=== PATIENT | male | born 1985 | race African-American/Black ===

== ENCOUNTER 2017-09-30 17:58 | Emergency (ER) | payer MEDICARE, OTHER ==
[2017-09-30 18:23] VITALS: RESP 18; TEMP 98.1
--- NOTE | 2017-09-30 18:52 | ED ---
General Adult HPI - General Chief complaint: Seizure Stated complaint: petit mal seizure Time Seen by Provider: 09/30/17 18:37 Source: patient, EMS Mode of arrival: EMS - History of Present Illness Initial comments: This is a 31-year-old male with no past medical history who presents emergency department for intermittent episodes of his left leg giving out. He states that he was walking to the store with his daughter when he noticed it. He states that he just felt like his left leg was giving out on him he was going to fall. He states he was "walking bowlegged". He states that he also felt like his neck was stiff and heavy. He states his head Falling to the right side. He denies any upper extremity symptoms. No difficulty with speech or swallowing. No facial asymmetry. No numbness or tingling. Denies any back pain, saddle anesthesia, all or bladder incontinence. States he does not have any known trauma. States that currently the symptoms have resolved. - Related Data Home Medications Medication Instructions Recorded Confirmed Haloperidol [Haldol] 10 mg PO BID 09/30/17 09/30/17 Allergies Allergy/AdvReac Type Severity Reaction Status Date / Time No Known Allergies Allergy Verified 09/30/17 18:35 Review of Systems ROS Statement: Those systems with pertinent positive or pertinent negative responses have been documented in the HPI. ROS Other: All systems not noted in ROS Statement are negative. Past Medical History Past Medical History: No Reported History History of Any Multi-Drug Resistant Organisms: None Reported Past Surgical History: No Surgical Hx Reported Past Psychological History: Anxiety Smoking Status: Current every day smoker Past Alcohol Use History: Rare Past Drug Use History: None Reported General Exam - General Exam Comments Initial Comments: Constitutional: Awake alert Appears comfortable Head: Normocephalic atraumatic Eyes: no conjunctival injection No scleral icterus EOMI Neck: No JVD Supple Heart: Regular rate rhythm normal S1-S2 no murmurs Lungs: Clear to auscultation bilaterally No wheezing No rales Abdomen: Soft nondistended nontender Extremities: Non edematous DP pulses intact Radial pulses intact Neuro: A&Ox3, cranial nerves II through XII are grossly intact, he pulls are 4 mm reactive bilaterally, 5 out of 5 strength in upper and lower extremities bilaterally, normal finger to nose and heel to hatfield testing, the patient has normal gait and does not seem to have any symptoms at this time, I walked him up and down the hallway without any issue No focal neurologic deficits Psych: Appropriate mood and affect Course Vital Signs 09/30/17 09/30/17 18:19 19:10 Temperature 98.1 F Pulse Rate 91 77 Respiratory 18 18 Rate Blood Pressure 151/69 144/82 O2 Sat by Pulse 98 98 Oximetry Medical Decision Making - Medical Decision Making This is a 31-year-old male who presents emergency department for his left leg giving out. The patient's symptoms have completely resolved by the time return emergency report. He was able to ambulate without assistance. CT of the head and neck was unremarkable. The patient had no back pain. This time I feel that he is okay to go home. Needs. Follow-up with his family doctor. May need neurological evaluation including EMG or MRI in the future. He has worsening or changing symptoms she can return emergency Department. All questions were answered. Disposition Clinical Impression: Transient left leg weakness Disposition: HOME SELF-CARE Condition: Stable Instructions: Weakness (ED) Referrals: Nonstaff,Physician [Primary Care Provider] - 1-2 days
[2017-09-30 19:12] VITALS: BP 144/82; PULSE 77
--- NOTE | 2017-09-30 19:15 | CT ---
EXAMINATION TYPE: CT brain betty cao con DATE OF EXAM: 09/30/2017 COMPARISON: NONE HISTORY: Left leg weakness, right side neck pain. CT DLP: 2008 mGycm Automated exposure control for dose reduction was used. TECHNIQUE: CT scan of the head and cervical spine are performed without contrast. FINDINGS: Ventricles and sulci appear normal. There is no mass effect nor midline shift. There is n o sign of intracranial hemorrhage. The calvarium is intact. There is no sign of cerebral edema. Cervical vertebra have normal alignment. Posterior elements are intact. Disc spaces are fairly well-m aintained. There is no evidence of a fracture. Skull base is intact. IMPRESSION: Negative CT scan of the brain. Negative CT scan of the cervical spine.
== END 2017-09-30 19:34 | disposition home or self-care (01) ==
LOC: EC 17:58
DX: R29.898 Other symptoms and signs involving the musculoskeletal system (principal); F17.200 Nicotine dependence, unspecified, uncomplicated; Z79.899 Other long term (current) drug therapy
CPT/HCPCS: 70450; 72125; 99285

== ENCOUNTER 2019-04-18 08:49 | Inpatient (IN) | payer MEDICARE, OTHER ==
--- NOTE | 2019-04-18 09:09 | ED ---
Psych HPI - General Chief Complaint: Psychiatric Symptoms Stated Complaint: Mental Health-petitioned Time Seen by Provider: 04/18/19 08:55 Source: patient Mode of arrival: wheelchair - History of Present Illness Initial Comments: 33-year-old male history of paranoid schizophrenia currently in [facility] presents emergency department petition for psych evaluation. Patient has been acting bizarre at the [facility] he has had hallucinations and is paranoid. Refuses to eat. Patient's been off his psychiatric medications refuses to take them. Patient is petition by the [facility] for evaluation by psychiatric services. Patient is cooperative. No evidence of violence per staff. Patient has no other complaints. Patient denies suicidal homicidal ideation. Patient states he does get paranoid. He does not like to take his medications in particular he does not like how Haldol makes him feel. Patient denies any recent fever, chills, shortness of breath, chest pain, back pain, abdominal pain, nausea or vomiting, numbness or tingling, dysuria or hematuria, constipation or diarrhea, headaches or visual changes, or any other complaints. - Related Data Home Medications Medication Instructions Recorded Confirmed Ibuprofen [Motrin] 800 mg PO BID PRN 04/18/19 04/18/19 Allergies Allergy/AdvReac Type Severity Reaction Status Date / Time No Known Allergies Allergy Verified 04/18/19 09:35 Review of Systems ROS Statement: Those systems with pertinent positive or pertinent negative responses have been documented in the HPI. ROS Other: All systems not noted in ROS Statement are negative. Past Medical History Past Medical History: No Reported History History of Any Multi-Drug Resistant Organisms: None Reported Past Surgical History: No Surgical Hx Reported Past Psychological History: Anxiety Smoking Status: Current every day smoker Past Alcohol Use History: Rare Past Drug Use History: None Reported General Exam - General Exam Comments Initial Comments: General: The patient is awake and alert, in no distress, and does not appear acutely ill. Eye: Pupils are equal, round and reactive to light, extra-ocular movements are intact. No nystagmus. There is normal conjunctiva bilaterally. No signs of icterus. Ears, nose, mouth and throat: There are moist mucous membranes and no oral lesions. Neck: The neck is supple, there is no tenderness or JVD. Cardiovascular: There is a regular rate and rhythm. No murmur, rub or gallop is appreciated. Respiratory: Lungs are clear to auscultation, respirations are non-labored, breath sounds are equal. No wheezes, stridor, rales, or rhonchi. Gastrointestinal: Soft, non-distended, non-tender abdomen without masses or organomegaly noted. There is no rebound or guarding present. Musculoskeletal: Normal ROM, no tenderness. Strength 5/5. Sensation intact. Pulses equal bilaterally 2+. Neurological: A&O x 3. CN II-XII intact, There are no obvious motor or sensory deficits. Coordination appears grossly intact. Speech is normal. Skin: Skin is warm and dry and no rashes or lesions are noted. Psychiatric: Cooperative, flat affect Limitations: no limitations Course Vital Signs 04/18/19 04/18/19 08:52 14:00 Temperature 97.8 F 98.3 F Pulse Rate 62 78 Respiratory 18 18 Rate Blood Pressure 167/84 167/98 O2 Sat by Pulse 100 99 Oximetry Medical Decision Making - Medical Decision Making 33-year-old male presented for psychiatric evaluation patient petition. Patient has history of paranoid schizophrenia. Patient is cooperative. Patient is off medications. Patient states he has been paranoid. This was a homicidal kay ation. Patient medical clearance no other complaints no abnormal physical examination findings. Patient appears well and nontoxic. It was recommended admission. Patient certified by my attending provider. - Lab Data Result diagrams: 04/18/19 09:05 04/18/19 09:05 Lab Results 04/18/19 04/18/19 04/18/19 Range/Units 09:00 09:05 09:05 WBC 4.6 (3.8-10.6) k/uL RBC 4.56 (4.30-5.90) m/uL Hgb 13.0 (13.0-17.5) gm/dL Hct 39.0 (39.0-53.0) % MCV 85.5 (80.0-100.0) fL MCH 28.6 (25.0-35.0) pg MCHC 33.4 (31.0-37.0) g/dL RDW 13.5 (11.5-15.5) % Plt Count 249 (150-450) k/uL Neutrophils % 37 % Lymphocytes % 47 % Monocytes % 6 % Eosinophils % 5 % Basophils % 1 % Neutrophils # 1.7 (1.3-7.7) k/uL Lymphocytes # 2.2 (1.0-4.8) k/uL Monocytes # 0.3 (0-1.0) k/uL Eosinophils # 0.2 (0-0.7) k/uL Basophils # 0.0 (0-0.2) k/uL Sodium 143 (137-145) mmol/L Potassium 4.3 (3.5-5.1) mmol/L Chloride 106 (98-107) mmol/L Carbon Dioxide 27 (22-30) mmol/L Anion Gap 10 mmol/L BUN 9 (9-20) mg/dL Creatinine 0.87 (0.66-1.25) mg/dL Est GFR (CKD-EPI)AfAm >90 (>60 ml/min/1.73 sqM) Est GFR (CKD-EPI)NonAf >90 (>60 ml/min/1.73 sqM) Glucose 91 (74-99) mg/dL Calcium 9.3 (8.4-10.2) mg/dL Total Bilirubin 1.1 (0.2-1.3) mg/dL AST 23 (17-59) U/L ALT 16 L (21-72) U/L Alkaline Phosphatase 48 (38-126) U/L Total Protein 7.6 (6.3-8.2) g/dL Albumin 4.5 (3.5-5.0) g/dL Urine Color Light Yellow Urine Appearance Clear (Clear) Urine pH 7.5 (5.0-8.0) Ur Specific [place] 1.004 (1.001-1.035) Urine Protein Negative (Negative) Urine Glucose (UA) Negative (Negative) Urine Ketones Negative (Negative) Urine Blood Negative (Negative) Urine Nitrite Negative (Negative) Urine Bilirubin Negative (Negative) Urine Urobilinogen <2.0 (<2.0) mg/dL Ur Leukocyte Esterase Negative (Negative) Urine Opiates Screen Not Detected (NotDetected) Ur Oxycodone Screen Not Detected (NotDetected) Urine Methadone Screen Not Detected (NotDetected) Ur Propoxyphene Screen Not Detected (NotDetected) Ur Barbiturates Screen Not Detected (NotDetected) U Tricyclic Antidepress Not Detected (NotDetected) Ur Phencyclidine Scrn Not Detected (NotDetected) Ur Amphetamines Screen Not Detected (NotDetected) U Methamphetamines Scrn Not Detected (NotDetected) U Benzodiazepines Scrn Not Detected (NotDetected) Urine Cocaine Screen Not Detected (NotDetected) U Marijuana (THC) Screen Not Detected (NotDetected) Disposition Clinical Impression: Schizophrenia, Psychosis Disposition: TRANSFER TO PSYCH HOSP/UNIT Condition: Serious Is patient prescribed a controlled substance at d/c from ED?: No Time of Disposition: 16:50 Decision to Admit Reason: Admit from EC Decision Date: 04/18/19 Decision Time: 12:00
[2019-04-18 09:27] LABS: Appearance,Urine Clear (Clear); Bilirubin,Urine Negative (Negative); Blood,Urine Negative (Negative); Color,Urine Light Yellow; Glucose,Urine (UA) Negative (Negative); Ketones,Urine Negative (Negative); Leukocyte Esterase,Urine Negative (Negative); Nitrite,Urine Negative (Negative); PH, Urine 7.5 (5.0-8.0); Protein,Urine Negative (Negative); Specific Gravity,Urine 1.004 (1.001-1.035); Urobilinogen,Urine <2.0 mg/dL (<2.0)
[2019-04-18 09:27] LABS: Basophils % (A) 1 %; Eosinophils # (A) 0.2 k/uL (0-0.7); Eosinophils % (A) 5 %; Lymphocytes # (A) 2.2 k/uL (1.0-4.8); Lymphocytes % (A) 47 %; MCH 28.6 pg (25.0-35.0); MCHC 33.4 g/dL (31.0-37.0); MCV 85.5 fL (80.0-100.0); Mean Platelet Volume 6.6; Monocytes # (A) 0.3 k/uL (0-1.0); Monocytes % (A) 6 %; Neutrophils # (A) 1.7 k/uL (1.3-7.7); Neutrophils % (A) 37 %; Platelet Count 249 k/uL (150-450); RBC 4.56 m/uL (4.30-5.90); RDW 13.5 % (11.5-15.5); WBC 4.6 k/uL (3.8-10.6)
[2019-04-18 09:42] LABS: ALT 16 U/L (21-72); AST 23 U/L (17-59); African American GFR (CKD) >90 (>60 ml/min/1.73 sqM); Albumin 4.5 g/dL (3.5-5.0); Alkaline Phosphatase 48 U/L (38-126); Anion Gap 10 mmol/L; Blood Urea Nitrogen 9 mg/dL (9-20); Calcium 9.3 mg/dL (8.4-10.2); Carbon Dioxide 27 mmol/L (22-30); Chloride 106 mmol/L (98-107); Glucose 91 mg/dL (74-99); Potassium 4.3 mmol/L (3.5-5.1); Sodium 143 mmol/L (137-145); Total Bilirubin 1.1 mg/dL (0.2-1.3); Total Protein 7.6 g/dL (6.3-8.2)
[2019-04-18 09:45] LABS: Cocaine Screen,Urine Not Detected (NotDetected); Phencyclidine Screen,Urine Not Detected (NotDetected); Urn Cannabinoid Scrn Not Detected (NotDetected)
[2019-04-18 09:46] LABS: Amphetamine Screen,Urine Not Detected (NotDetected); Barbiturate Screen,Urine Not Detected (NotDetected); Benzodiazepines Screen,Urine Not Detected (NotDetected); Methadone Screen, Urine Not Detected (NotDetected); Opiate Screen,Urine Not Detected (NotDetected); Oxycodone Screen, Urine Not Detected (NotDetected); Tricyclic Antidepressant,Urine Not Detected (NotDetected)
[2019-04-18] MEDS ORDERED: MAG HYDROX/AL HYDROX/SIMETH 30 ML CUP PO PRN (15:21)
[2019-04-18] MEDS ORDERED: LORazepam 2 MG/ML INJ IM PRN (15:22)
[2019-04-18] MEDS ORDERED: OLANZapine 5 MG TAB PO PRN (15:23)
[2019-04-18 15:38] VITALS: BMI 23.8
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
[2019-04-18] MEDS: ACETAMINOPHEN TAB 325 MG TAB PO PRN (21:29)
[2019-04-18] MEDS ORDERED: LORazepam 1 MG TAB PO PRN (21:51)
[2019-04-19] MEDS: ACETAMINOPHEN TAB 325 MG TAB PO PRN ×4 (08:01→21:06)
[2019-04-19] MEDS: NICOTINE 14MG/24HR PATCH TRANSDERM SCH (09:07)
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
[2019-04-19 18:40] LABS: Hemoglobin A1C 5.2 % (4.0-6.0)
[2019-04-20] MEDS: NICOTINE 14MG/24HR PATCH TRANSDERM SCH (08:56)
[2019-04-20] MEDS: ACETAMINOPHEN TAB 325 MG TAB PO PRN (08:57)
--- NOTE | 2019-04-20 10:22 | P.PN ---
Progress Note - Text Progress Note Date: 04/20/19 Interval history: The patient is found in group he follows me to an interview room. He states that his mood is great. He states he feels like the president who has the [employer]. He indicated he slept last night staff report he slept 7 hours. Appetite stable. We discussed his treatment plan while here. He indicates that he is willing to take the Abilify we discussed yesterday and we agreed to a starting dose of 15 mg. He indicates he is attending groups and appreciates the ability to have conversations with others. Mental status exam: The patient is alert he is dressed in hospital gowns. He is cooperative upon approach she follows me to an interview room. He remained seated in his chair and so we conclude the interview. Eye contact is appropriate. Speech is fluent spontaneous nonpressured. He demonstrated no verbal or physical aggressiveness today. He is not spontaneously describing any delusional thoughts as he was yesterday. I do suspect that those thoughts persist however. He is somewhat guarded. He demonstrates a linear thought process he is circumstantial at times. He demonstrate some range of affect with smiling.He demonstrates no involuntary repetitive movements. Insight and judgment limited. Impression/plan: Acute symptoms of psychosis, we will initiate Abilify 15 mg daily. We will continue to encourage his full participation in the milieu we will monitor him for safety. Vital signs reviewed they're within normal limits.
[2019-04-20] MEDS: ARIPiprazole 15 MG TAB PO SCH (12:13)
[2019-04-20] MEDS: IBUPROFEN 800 MG TAB PO PRN (19:15)
[2019-04-21] MEDS: NICOTINE 14MG/24HR PATCH TRANSDERM SCH (08:07)
[2019-04-21] MEDS: ARIPiprazole 15 MG TAB PO SCH (08:07)
[2019-04-21] MEDS: ACETAMINOPHEN TAB 325 MG TAB PO PRN ×3 (08:08→21:05)
--- NOTE | 2019-04-21 13:28 | P.PN ---
Progress Note - Text Progress Note Date: 04/21/19 Interval history: The patient's found in the hallway he follows me to an interview room. He indicates his mood is stable. He indicates that he will remain compliant with the Abilify. He states that he feels a little tired with the medication we discussed that he could be switched to bedtime if needed. He has been attending some groups. He slept approximate 4 hours last night. Mental status exam: The patient is an male appearing his stated age. He is dressed in hospital attire. He is cooperative. He seated in the chair calmly during our session. He does appear to be distractible and is not attending the conversation very well. He denies having any symptoms of p sychosis although the are assumed to persist. Staff report that he has been demonstrating some bizarre behavior while in his room and he was verbally agitated with staff earlier this morning. He demonstrated no verbal or physical aggressiveness with me during our session. He demonstrates no involuntary repetitive movements. Insight and judgment are impaired. Affect is constricted. He is oriented to person place and date. Impression/plan: Acute symptoms of psychosis. Continue the Abilify as written. We will consider transitioning to Abilify [facility] and at this point he is agreeable. We will monitor him for safety and encourage appropriate participation in the milieu. Efforts are made to provide reality orientation. Vital signs reviewed.
[2019-04-21] MEDS: IBUPROFEN 800 MG TAB PO PRN (13:40)
[2019-04-22] MEDS: LORazepam 1 MG TAB PO PRN (01:10)
[2019-04-22] MEDS: IBUPROFEN 800 MG TAB PO PRN ×3 (01:10→20:04)
[2019-04-22] MEDS: ARIPiprazole 15 MG TAB PO SCH (08:41)
[2019-04-22] MEDS: NICOTINE 14MG/24HR PATCH TRANSDERM SCH (08:41)
[2019-04-22] MEDS: ACETAMINOPHEN TAB 325 MG TAB PO PRN (08:42)
--- NOTE | 2019-04-22 10:07 | P.PN ---
Progress Note - Text Progress Note Date: 04/22/19 Interval history: Patient seen for weekend cross coverage. Patient was agreeable to speak to jingle writer. The patient offers no overnight complaints and states that he is doing well. Patient did not endorse any delusional content or paranoia. He states that he is taking his medications and is tolerating them well. Patient claims he slept well last night and has fair energy and going to some groups. At this time patient denies any suicidal or homicidal ideations intent or plan. Denies any Auditory or visual hallucinations. Patient denies any side effects from the medications and has been compliant with meds. Mental status exam: General Appearance: [Patient appears to be stated age is alert, pleasant, and cooperative.] Behavior: [No agitated behavior. Patient is calm and directable] Speech: Patient's speech is fluent and nonpressured. Mood/Affect: Mood is improving, affect is congruent and constricted. Suicidality/Homicidality: Patient denies having any suicidal or homicidal ideation intent or plan. Perceptions: Patient denies any auditory or visual hallucinations. Though content/process: [There is no evidence of any delusional thought content and thought process is linear and goal-directed.] Memory and concentration: AOX3, grossly intact for the purposes of this session Judgment and insight: improving Assessment/Plan: Continue with current diagnosis. Patient continues to meet criteria for inpatient psychiatric admission for symptom stabilization and safety.[Patient will be maintained on current psychotropic medication regimen.] Continue with current dose of Abilify. Monitor for medication compliance and for any psychotropic medication side effects. Will continue to monitor ongoing response to treatment.
[2019-04-22] MEDS ORDERED: IBUPROFEN 600 MG TAB PO PRN (11:05)
[2019-04-22] MEDS: diphenhydrAMINE 50 MG CAP PO PRN (20:04)
[2019-04-23] MEDS: IBUPROFEN 800 MG TAB PO PRN ×2 (02:10→15:01)
[2019-04-23] MEDS: LORazepam 1 MG TAB PO PRN (02:10)
[2019-04-23] MEDS: HALOPERIDOL LACTATE 5 MG/ML 1 ML VIAL IM PRN (02:34)
[2019-04-23] MEDS: ARIPiprazole 15 MG TAB PO SCH (07:50)
[2019-04-23] MEDS: NICOTINE 14MG/24HR PATCH TRANSDERM SCH (07:50)
--- NOTE | 2019-04-23 10:49 | P.PN ---
Progress Note - Text Progress Note Date: 04/23/19 Interval history: Patient seen for weekend cross coverage. Patient called creative services writer over to speak with him. Patient was preoccupied with discharge today and stated that he feels a lot better on the medications. He also stated that he tolerated the injection well and asked when he can leave the hospital. The patient offers no overnight complaints and states that he is doing well on the addition of ibuprofen and Benadryl for sleep. Patient did not endorse any delusional content or paranoia. He states that he is taking his medications and is tolerating them well. Patient claims he is going to some groups. At this time patient denies any suicidal or homicidal ideations intent or plan. Denies any Auditory or visual hallucinations. Patient denies any side effects from the medications and has been compliant with meds. Mental status exam: General Appearance: Patient appears to be stated age is alert, pleasant, and cooperative. Behavior: No agitated behavior. Patient is calm and directable Speech: Patient's speech is fluent and nonpressured. Mood/Affect: Mood is improving, affect is congruent and constricted. Suicidality/Homicidality: Patient denies having any suicidal or homicidal ideation intent or plan. Perceptions: Patient denies any auditory or visual hallucinations. Though content/process: There is no evidence of any delusional thought content and thought process is linear and goal-directed. Memory and concentration: AOX3, grossly intact for the purposes of this session Judgment and insight: improving Assessment/Plan: Continue with current diagnosis. Patient continues to meet criteria for inpatient psychiatric admission for symptom stabilization and safet y. Patient will be maintained on current psychotropic medication regimen. Continue with current dose of Abilify PO. Monitor for medication compliance and for any psychotropic medication side effects. Will continue to monitor ongoing response to treatment.
[2019-04-23] MEDS: ACETAMINOPHEN TAB 325 MG TAB PO PRN ×3 (10:59→20:06)
[2019-04-23] MEDS: diphenhydrAMINE 50 MG CAP PO PRN (21:20)
[2019-04-24] MEDS: NICOTINE 14MG/24HR PATCH TRANSDERM SCH (08:46)
[2019-04-24] MEDS: ARIPiprazole 15 MG TAB PO SCH (08:46)
[2019-04-24] MEDS: IBUPROFEN 800 MG TAB PO PRN ×2 (08:47→20:18)
--- NOTE | 2019-04-24 11:04 | P.PN ---
Progress Note - Text Interval history: The patient is found in the hallway he follows me to the library to speak. He indicates his mood is good he feels stable. We reviewed his psychotropic medication he has no questions. He requested that I speak to his mother as she had questions regarding his treatment. With his expressed permission I spoke to his mother. She indicated that the patient seemed to be doing well based on their phone conversations. She is aware that when he is not on medication he is quite delusional and agitated. She feels that that is significantly improved. We discussed his current medication management her questions were answered. The patient indicated that he slept 7 hours last night and was pleased because that is unusual for him. His appetite is reportedly stable. Staff report that he's been cooperative and attending groups. Mental status exam: The patient is alert he is dressed in hospital gowns. Hygiene grooming adequate. Speech is fluent and spontaneous nonpressured. He mostly has a constricted affect but does demonstrate some range. He reports no suicidal or homicidal thoughts. He is endorsing no auditory or visual hallucinations or any specific delusions. He may be under reporting some delusional thought however. He demonstrates no verbal or physical aggressiveness today. He demonstrates no involuntary repetitive movements. He is oriented to person place and date. Impression/plan: Symptoms of psychosis improving, agitated behavior much improved. We will continue the Abilify as written. We will likely initiate the Abilify maintena as it appears the medication is demonstrating efficacy. Continue to monitor him for safety. Vital signs reviewed. If he continues to demonstrate improvement he may be appropriate for discharge this week. We will verify if he needs to return to the senior care.
[2019-04-24] MEDS: ACETAMINOPHEN TAB 325 MG TAB PO PRN (17:51)
[2019-04-24] MEDS: diphenhydrAMINE 50 MG CAP PO PRN (20:19)
[2019-04-25] MEDS: NICOTINE 14MG/24HR PATCH TRANSDERM SCH (08:53)
[2019-04-25] MEDS: ARIPiprazole 15 MG TAB PO SCH (08:54)
[2019-04-25] MEDS: IBUPROFEN 800 MG TAB PO PRN ×2 (08:55→20:40)
--- NOTE | 2019-04-25 09:37 | P.PN ---
Progress Note - Text Interval history: The patient is found in the hallway he follows me to an interview room. He indicates his mood is improving. He slept partially 6 hours last evening. We reviewed his medication and his questions were answered. He is agreeable to having us initiate the Abilify maintena today. Appetite stable. He states he is trying to attend groups. Mental status exam: The patient is an -[place] male appearing his stated age. He is dressed in his own clothing hygiene grooming are good. Speech is fluent spontaneous nonpressured. He reports his mood is improving. He is still somewhat guarded but he is endorsing no auditory or visual hallucinations he is endorsing no specific delusions. There may be some residual delusional thoughts present. He demonstrates no verbal or physical aggressiveness. Insight and judgment limited. He has become more cooperative throughout the hospitalization however. He is oriented to person place and date of the week month year. He demonstrates no involuntary repetitive movements. He does have some increased psychomotor activity while seated. Impression/plan: Schizophrenia, the patient is improving with the use of Abilify. We will give him the Abilify maintena injection 400 mg today. Continue the oral dose for a total of 14 days. We will continue to monitor him for safety. We will discuss his progress during treatment team meeting. He may be appropriate for discharge back to the residential in 1-2 days.
[2019-04-25] MEDS ORDERED: ARIPiprazole IM SYRINGE 400 MG (NO CHARGE) IM ONE (10:00)
[2019-04-25] MEDS: ACETAMINOPHEN TAB 325 MG TAB PO PRN ×3 (12:51→22:12)
[2019-04-26] MEDS: ACETAMINOPHEN TAB 325 MG TAB PO PRN ×4 (02:42→22:08)
--- NOTE | 2019-04-26 09:02 | P.PN ---
Progress Note - Text Interval history: The patient is found in the hallway he follows me to an interview room. He indicates that his mood is improving. He states he was able to sleep better last night. Appetite stable. He has been participating in his activities of daily living. He has been attending groups. Staff report no agitated behavior. He has no questions or concerns regarding his medication. He spontaneously describes future oriented thoughts of things he will do once he is released from longterm. Mental status exam: The patient is alert he is dressed in his own clothing hygiene grooming are good. Speech is fluent spontaneous nonpressured. He reports no thoughts of wanting to harm himself or others. He is reporting no auditory or visual hallucinations he is endorsing no specific delusions. Those may still persistent in residual form. He demonstrates no tangential thinking loose associations or flight of ideas. He does struggle with retaining detailed information. For the second day we went through his day of admission and the course of the hospitalization. He seemed to ruminate on the number of days that he's been here. Insight and judgment improving. He demonstrated no verbal or physical aggressiveness he demonstrates no involuntary repetitive movements. Impression/plan: Schizophrenia, symptoms improving. The patient will continue on his medication is written. We will anticipate discharging him back to the longterm in 1-2 days. We will continue to track his clinical progress. We will monitor him for safety. Vital signs reviewed.
[2019-04-26] MEDS: NICOTINE 14MG/24HR PATCH TRANSDERM SCH (09:06)
[2019-04-26] MEDS: ARIPiprazole 15 MG TAB PO SCH (09:06)
[2019-04-26] MEDS: IBUPROFEN 800 MG TAB PO PRN ×2 (09:08→20:55)
[2019-04-26] MEDS: HYDROCHLOROTHIAZIDE 25 MG TAB PO SCH (15:39)
[2019-04-26] MEDS: diphenhydrAMINE 50 MG CAP PO PRN (20:55)
[2019-04-27] MEDS: ACETAMINOPHEN TAB 325 MG TAB PO PRN ×4 (02:02→22:46)
[2019-04-27] MEDS: LORazepam 1 MG TAB PO PRN ×2 (02:28→22:46)
[2019-04-27] MEDS: HALOPERIDOL LACTATE 5 MG/ML 1 ML VIAL IM PRN (03:56)
[2019-04-27] MEDS: ARIPiprazole 15 MG TAB PO SCH (08:57)
[2019-04-27] MEDS: NICOTINE 14MG/24HR PATCH TRANSDERM SCH (08:57)
[2019-04-27] MEDS: IBUPROFEN 800 MG TAB PO PRN ×2 (08:58→21:14)
[2019-04-27] MEDS: HYDROCHLOROTHIAZIDE 25 MG TAB PO SCH (08:58)
[2019-04-27 09:01] VITALS: RESP 18
--- NOTE | 2019-04-27 10:07 | P.DS ---
Providers Date of admission: 04/18/19 14:34 Expected date of discharge: 04/27/19 Attending physician: Michael Martinez Consults: 04/18/19 15:21 Consult Physician Routine Consulting Provider: Kevin Salazar Consult Reason/Comments: H&P and medical Do you want consulting provider notified?: Yes Primary care physician: Stated None - Discharge Diagnosis(es) (1) Schizophrenia Current Visit: Yes Status: Acute Priority: High Hospital Course: Brief summary of admission note: This person is a 33-year-old single Daily male was admitted to the mental health unit from the half-way for acute symptoms of psychosis. He was noted to demonstrate grandiose thinking agitation and poor attendance to his ADLs. He expressed concerns that his food was contaminated. Initially on the mental health unit he was agitated and threatening. Eventually he was redirected and he participated in the psychiatric evaluation. For full details please refer to my psychiatric evaluation dated 04/19/2019. Summary of hospital course: The patient was admitted to the mental health unit on a petition and clinical certificate. He did sign in voluntarily. Upon evaluation he was initially very agitated and threatening later that same morning he was more agreeable to participate in a conversation with me. He was not willing to initiate a medication of the first day but we discussed her options. The next day he was willing to initiate Abilify. He was fearful that he would be started on Haldol again and have side effects that he had experienced in the past with Haldol. He seemed to demonstrate clinical improvement with the Abilify he was agreeable to receiving the Abilify maintena and that injection was given on 04/25/2019 400 mg. He was seen by internal medicine for routine history and physical exam. He has been attending his activities of daily living. Sleep has improved appetite is been stable. With his expressed permission and at his request I spoke with his mother via phone. She felt that he was much improved based on her phone conversations. She had indicated he has a long history of psychotic symptoms and that he does require medication to treat those. Mental status exam: The patient is an alert -[place] male appearing his stated age. He is dressed in his own clothing hygiene grooming adequate. Speech is fluent spontaneous nonpressured. He reports no suicidal or homicidal ideation intent or plan. No auditory or visual hallucinations. He endorses no specific delusions. He may have some continued residual symptoms of psychosis but none that are acute. He has been verbally redirectable. He demonstrates an appropriate affect. He demonstrates no verbal or physical aggressiveness he demonstrates no involuntary repetitive movements. Insight and judgment have improved. He is oriented to person place and date. He discusses future oriented thinking. He demonstrates no tangential thinking loose associations or flight of ideas he does not appear hypomanic or manic. Intellect is estimated to be below average. Impressions 1. Schizophrenia, rule out alcohol use disorder rule out cannabis use disorder 2. Antisocial personality disorder traits Plan: The patient will be discharged mental health unit today and he will return to the half-way. Continue on Abilify 15 mg daily through May 09 than the oral dose can be discontinued. He will be due for his next Abilify maintena injection on 05/23/2019. The patient will need to be followed by mental health services in the half-way and most likely transition to community mental health upon discharge from half-way. He is instructed to abstain from any use of alcohol mario dorota oral any illicit drug as he substances can provoke symptoms of psychosis and elevate his safety risk. At this time there is no imminent safety risk he is appropriate for transition to half-way and then subsequently outpatient care. Patient Condition at Discharge: Stable Plan - Discharge Summary New Discharge Prescriptions: New ARIPiprazole [Abilify] 15 mg PO DAILY #12 tab ARIPiprazole IM [Abilify Maintena] 400 mg IM QMONTH #1 vial Nicotine 14Mg/24Hr Patch [Habitrol] 1 patch TRANSDERM DAILY #14 patch Hydrochlorothiazide [Hydrodiuril] 25 mg PO DAILY #30 tab Discontinued Ibuprofen [Motrin] 800 mg PO BID PRN PRN Reason: Pain Discharge Medication List ARIPiprazole IM [Abilify Maintena] 400 mg IM QMONTH #1 vial 04/27/19 [Rx] ARIPiprazole [Abilify] 15 mg PO DAILY #12 tab 04/27/19 [Rx] Hydrochlorothiazide [Hydrodiuril] 25 mg PO DAILY #30 tab 04/27/19 [Rx] Nicotine 14Mg/24Hr Patch [Habitrol] 1 patch TRANSDERM DAILY #14 patch 04/27/19 [Rx] Follow up Appointment(s)/Referral(s): None,Stated [Primary Care Provider] - 1-2 days Activity/Diet/Wound Care/Special Instructions: Activity and diet as tolerated. No guns or weapons in the home. Refrain from alcohol and street drugs not prescribed by your physicians. Take all your medications as prescribed, and attend all your follow up appointments as scheduled. If in need of medication refills, please go to your primary care physicians, or your out patient psychiatrist. If in crisis, please call or go to your nearest ER for an evaluation.
[2019-04-27] MEDS ORDERED: HYDROCHLOROTHIAZIDE 25 MG TAB PO SCH (13:51)
[2019-04-27] MEDS: MAGNESIUM HYDROXIDE 2,400 MG/10 ML CUP PO PRN (16:48)
[2019-04-27] MEDS: diphenhydrAMINE 50 MG CAP PO PRN (21:14)
[2019-04-28] MEDS: ACETAMINOPHEN TAB 325 MG TAB PO PRN ×2 (04:04→08:59)
[2019-04-28] MEDS: IBUPROFEN 800 MG TAB PO PRN (05:50)
[2019-04-28 06:51] VITALS: BP 119/55; PULSE 76; TEMP 98.3
[2019-04-28] MEDS: HYDROCHLOROTHIAZIDE 25 MG TAB PO SCH (08:57)
[2019-04-28] MEDS: ARIPiprazole 15 MG TAB PO SCH (08:57)
[2019-04-28] MEDS: NICOTINE 14MG/24HR PATCH TRANSDERM SCH (08:57)
[2019-04-28] MEDS: MAGNESIUM HYDROXIDE 2,400 MG/10 ML CUP PO PRN (10:27)
--- NOTE | 2019-04-28 11:09 | P.DS ---
Providers Date of admission: 04/18/19 14:34 Expected date of discharge: 04/28/19 Attending physician: Michael Martinez Consults: 04/18/19 15:21 Consult Physician Routine Consulting Provider: Kevin Salazar Consult Reason/Comments: H&P and medical Do you want consulting provider notified?: Yes Primary care physician: Stated None - Discharge Diagnosis(es) (1) Schizophrenia Current Visit: Yes Status: Acute Priority: High Hospital Course: Interval history: The patient is found in the hallway he follows me to an interview room. His discharge was canceled as logistically his medications could not be given to him at the alf as directed until other arrangements were made. Mental status exam: The patient is alert he is dressed in his own clothing hygiene grooming adequate. Eye contact is good. Speech is fluent spontaneous nonpressured. He is easily directed during the session. He reports mood is stable he is aware that he is returning back to the alf and is agreeable. He is reporting no suicidal or homicidal ideation intent or plan. He is reporting no auditory or visual hallucinations or any specific delusions. He demonstrates no tangential thinking loose associations or flight of ideas he does not appear hypomanic or manic. He is demonstrating no verbal or physical aggressiveness. Involuntary repetitive movements. Insight and judgment have improved. He is oriented to person place and date. He demonstrates future oriented thinking. Impressions 1. Schizophrenia 2. Antisocial personality disorder traits Plan: The patient will be discharged to the alf from the mental health unit today as previously planned. He will continue on the Abilify 15 mg daily through May 09. He will need to continue receiving his Abilify maintena injection as described in yesterday's dictation. Patient Condition at Discharge: Stable Plan - Discharge Summary New Discharge Prescriptions: New ARIPiprazole [Abilify] 15 mg PO DAILY #12 tab ARIPiprazole IM [Abilify Maintena] 400 mg IM QMONTH #1 vial Nicotine 14Mg/24Hr Patch [Habitrol] 1 patch TRANSDERM DAILY #14 patch Hydrochlorothiazide [Hydrodiuril] 25 mg PO DAILY #30 tab Discontinued Ibuprofen [Motrin] 800 mg PO BID PRN PRN Reason: Pain Discharge Medication List ARIPiprazole IM [Abilify Maintena] 400 mg IM QMONTH #1 vial 04/27/19 [Rx] ARIPiprazole [Abilify] 15 mg PO DAILY #12 tab 04/27/19 [Rx] Hydrochlorothiazide [Hydrodiuril] 25 mg PO DAILY #30 tab 04/27/19 [Rx] Nicotine 14Mg/24Hr Patch [Habitrol] 1 patch TRANSDERM DAILY #14 patch 04/27/19 [ Rx] Follow up Appointment(s)/Referral(s): None,Stated [Primary Care Provider] - 1-2 days Patient Instructions/Handouts: Schizophrenia (DC), Psychotic Disorder (DC), Suicide Prevention (DC) Activity/Diet/Wound Care/Special Instructions: Activity and diet as tolerated. No guns or weapons in the home. Refrain from alcohol and street drugs not prescribed by your physicians. Take all your medications as prescribed, and attend all your follow up appointments as scheduled. If in need of medication refills, please go to your primary care physicians, or your out patient psychiatrist. If in crisis, please call or go to your nearest ER for an evaluation.
== END 2019-04-28 12:16 | DRG 885 ==
LOC: EC 08:49 → 3MHU 14:34
PROVIDERS: ADMIT Psychiatry & Neurology Psychiatry; ATTEND Psychiatry & Neurology Psychiatry
DX: F20.9 Schizophrenia, unspecified (principal); R45.851 Suicidal ideations; F60.2 Antisocial personality disorder; F17.200 Nicotine dependence, unspecified, uncomplicated; F41.9 Anxiety disorder, unspecified; Z79.899 Other long term (current) drug therapy; Z87.820 Personal history of traumatic brain injury
CPT/HCPCS: 36415; 80053; 80061; 80306; 81003; 82075; 83036; 84443; 85025; 99285